=== PATIENT | female | born 1975 | race Caucasian/White ===

== ENCOUNTER 2017-01-08 19:39 | Emergency (ER) | payer BC ==
[2017-01-08] MEDS ORDERED: NORMAL SALINE 10 ML SYRINGE FLUSH IVP PRN (19:57)
[2017-01-08] MEDS ORDERED: ONDANSETRON 4 MG/2 ML VIAL IVP ONE (19:57)
[2017-01-08 20:03] VITALS: RESP 18; TEMP 97.5
[2017-01-08] MEDS ORDERED: Belladon/PHENobarbital Elixir 10 ML, Lidocaine Viscous Liquid 2% 15 ML, Mag Hyd/Al Hyd/... PO ONE ×3 (20:18)
[2017-01-08 20:19] LABS: BASOPHILS # (AUTO) 0.02 10*3/UL; BASOPHILS % (AUTO) 0.3 % (0-1); EOSINOPHILS # (AUTO) 0.04 10*3/UL; EOSINOPHILS % (AUTO) 0.5 % (0-8); HEMATOCRIT 39.3 % (37.0-47.0); HEMOGLOBIN 13.3 g/dL (12.0-16.0); LYMPHOCYTES # (AUTO) 1.91 10*3/uL; MEAN CORPUSCULAR HEMOGLOBIN 28.7 PG (27-31); MEAN CORPUSCULAR HGB CONC 33.8 g/dL (33-37); MEAN CORPUSCULAR VOLUME 84.9 FL (81-99); MEAN PLATELET VOLUME 8.4 FL (7.4-12.2); MONOCYTES # (AUTO) 0.54 10*3/UL (0.3-0.8); MONOCYTES % (AUTO) 7.2 % (5-15); NEUTROPHILS # (AUTO) 4.95 10*3/UL; NEUTROPHILS % (AUTO) 66.3 % (50-80); RED BLOOD COUNT 4.63 10^6/uL (4.20-5.40)
[2017-01-08 20:22] LABS: PLATELET MORPHOLOGY COMMENT NORMAL MORPHOLOGY (NORM); RBC MORPHOLOGY COMMENT NORMAL MORPHOLOGY (NORM); WBC MORPHOLOGY COMMENT NORMAL MORPHOLOGY (NORM)
[2017-01-08 20:30] LABS: BLOOD UREA NITROGEN 9 mg/dL (7-22); BUN/CREATININE RATIO 12.85 (6-20); C-REACTIVE PROTEIN 1.6 mg/dL (0.0-0.9); CALCIUM 8.8 mg/dL (8.7-10.7); EST GLOMERULAR FILTRATION > 60 (>60 ml/min/1.73m(2)); LIPASE 111 IU/L (23-300)
[2017-01-08] MEDS ORDERED: Pantoprazole Inj 40 MG in Normal Saline Flush 10 ML IVP ONE (20:51)
--- NOTE | 2017-01-08 21:35 | PDOC ---
Abdomen/Flank HPI - General Chief Complaint: Abdomen Pain Stated Complaint: Epigastric pain Date Seen by Provider: 01/08/17 Time Seen by Provider: 19:45 Source: POSITIVE: Patient Exam Limitations: POSITIVE: No limitations Nurse's Notes Reviewed & Considered: Yes - History of Present Illness Initial Comments: The patient is a 41-year-old female who presents to the emergency department with epigastric abdominal pain. She reports that intermittently for the past 3 or 4 months she has had pain in the epigastric region that occasionally radiates through to the back. This pain seems to occur at random intervals and is not necessarily related to eating certain foods or eating in general. Her pain does not seem to be related with activity either. She denies any radiation of pain into her chest, shortness of breath, pain or swelling in her extremities, fevers or chills, change in bowel movements, vomiting or any other associated symptoms. She denies any previous abdominal surgery. She has not had any known ulcer or gastritis. She does admit to drinking coffee as well as tea fairly frequently. Her pain at home was quite intense in seems to have eased up by the time she arrives here in the emergency room. - Patient Home Medications Home Medications: Home Medications Norethindrone-E.estradiol-Iron [Loestrin Fe 1-20 Tablet] 1 tab PO DAILY #28 packet 12/21/16 Pantoprazole Sodium [Protonix] 40 mg PO DAILY #30 tablet. 01/08/17 - Patient Allergies Allergies/Adverse Reactions: Allergies Allergy/AdvReac Type Severity Reaction Status Date / Time amoxicillin Allergy RASH Verified 01/08/17 19:49 Penicillins Allergy rash Verified 01/08/17 19:49 Past Medical History - heen HEENT History: Denies History Cardiovascular History: Other (please comment) Additional Cardiovasular History: Pt reports cardiac cath surgery as young child , with negative results because of chest pain as a child. Pt reports chest pain resolved and hasn't had pain since. Respiratory History: Denies History Gastrointestinal History: Denies History Genitourinary History: Kidney Stones Endocrine History: Denies History Musculoskeletal History: Denies History Prosthesis or Implant: No Neurological History: Denies History Blood Disorders: Denies History Psychiatric History: Denies History Female Reproductive History: Denies History Obstetrical History: Denies History Cancer History: Denies History In Past Year Been Physically Harmed or Verbally Threatened: No History of MDRO: No Tobacco Use: Never Smoker Alcohol Use: None Substance Use Type: None Previous Surgical History: Yes Type / Date of Surgery: cardiac cath at age 4, negative results Significant Family History: No pertinent family hx Past Medical History Reviewed: Reviewed - No Changes ROS - Limitations ROS Limitations: No Limitations Constitution: REPORTS: Chills, Fever Cardiovascular: REPORTS: Denies Cardiac Symptoms Respiratory: REPORTS: Denies Resp Symptoms Neurological: REPORTS: Denies Neuro Symptoms Gastrointestinal: REPORTS: Abdominal Pain, Nausea. DENIES: Vomitting, Diarrhea , Black Stools, Bloody Stools, Constipation Musculoskeletal: REPORTS: Denies MS Symptoms Eyes: REPORTS: Denies Symptoms ENT: REPORTS: Denies Symptoms Skin: DENIES: Rash Abdominal/Flank Pain PE - General Appearance General Appearance: POSITIVE: Alert, Cooperative, No Acute Distress - HEENT HEENT: POSITIVE: Head Inspection Nml - Neck Neck: POSITIVE: Normal Inspection. NEGATIVE: Lymphadenopathy - Respiratory Respiratory: POSITIVE: No Respiratory Distress, Breath Sounds Normal - Cardiovascular Cardiovascular: POSITIVE: Regular Rate and Rhythm, Heart Sounds Normal Peripheral Pulses: Dorsalis-pedis (R): 2+, Dorsalis-pedis (L): 2+ - Abdomen Abdomen: Soft: (All Quadrants), Normal Bowel Sounds: (All Quadrants), No Guarding: (All Quadrants), No Rebound: (All Quadrants), No Distention: (All Quadrants) Additional Abdominal Details: She does have some tenderness in the epigastric as well as right upper quadrant , negative Cloud sign, no guarding or rebound tenderness, no palpable mass. - Skin Skin: POSITIVE: Intact, No Rash - Extremities Extremity: Normal ROM: (All Extremities), Normal Inspection: (All Extremities) - Neurological Neurological: POSITIVE: Oriented X3, Motor Normal, Sensation Normal Abdomen Progress - Results Reviewed by me Lab Results Reviewed: Yes Lab Results:: Laboratory Results 01/08/17 Range/Units 20:10 WBC 7.47 (4.8-10.8) 10^3/uL RBC 4.63 (4.20-5.40) 10^6/uL Hgb 13.3 (12.0-16.0) g/dL Hct 39.3 (37.0-47.0) % MCV 84.9 (81-99) FL MCH 28.7 (27-31) PG MCHC 33.8 (33-37) g/dL RDW Std Deviation 39.0 (39-50) fL RDW Coeff of Jeremy 12.9 (11.5-14.5) % Plt Count 300 (140-350) 10*3/uL MPV 8.4 (7.4-12.2) FL Immature Gran % (Auto) 0.1 (0-5) % Neut % (Auto) 66.3 (50-80) % Lymph % (Auto) 25.6 (10-50) % Collin % (Auto) 7.2 (5-15) % Eos % (Auto) 0.5 (0-8) % Baso % (Auto) 0.3 (0-1) % Immature Gran # (Auto) 0.01 10*3/UL Neut # (Auto) 4.95 10*3/UL Lymph # (Auto) 1.91 10*3/uL Collin # (Auto) 0.54 (0.3-0.8) 10*3/UL Eos # (Auto) 0.04 10*3/UL Baso # (Auto) 0.02 10*3/UL WBC Morphology Comment Normal morphology (NORM) Plt Morphology Comment Normal morphology (NORM) RBC Morph Comment Normal morphology (NORM) Sodium 138 (135-145) meq/L Potassium 3.7 L (3.8-5.2) meq/L Chloride 107 (98-112) meq/L Carbon Dioxide 21 L (23-33) meq/L Anion Gap 10 (5-20) BUN 9 (7-22) mg/dL Creatinine 0.7 (0.50-1.20) mg/dL Estimated GFR > 60 (>60 ml/min/1.73m(2)) BUN/Creatinine Ratio 12.85 (6-20) Glucose 93 (78-110) mg/dL Calculated Osmolality 284.0 (267-292) mOsm/kg Calcium 8.8 (8.7-10.7) mg/dL Total Bilirubin 1.0 (0.3-1.2) mg/dL AST 52 H (8-39) IU/L ALT 45 (9-52) IU/L Alkaline Phosphatase 89 (38-126) IU/L Troponin I < 0.012 (< 0.040) ng/mL C-Reactive Protein 1.6 H (0.0-0.9) mg/dL Total Protein 7.4 (6.1-8.0) g/dL Albumin 4.0 (3.5-4.8) g/dL Globulin 3.4 (2.50-4.10) g/dL Albumin/Globulin Ratio 1.10 L (1.3-2.0) mg/g Amylase 70 (30-110) U/L Lipase 111 (23-300) IU/L Serum HCG, Qual Negative EKG Interpreted/Reviewed By Me:: Yes EKG Interpretation:: POSITIVE: Normal Sinus Rhythm, Normal Rate, Normal Intervals, Normal QRS, Normal ST/T - Patient's Progress MDM / ED Course: Her initial EKG was normal. Blood work is all essentially unremarkable except for slightly elevated AST. At this point her symptoms seem most consistent with gastritis or ulcer. Her pain resolved completely even before administration of GI cocktail. For now she was started on Protonix 40 mg daily and advised to limit caffeine intake. She will return to the emergency room if increased pain, fever, worsening or change in symptoms. If symptoms persist she will likely require further evaluation with ultrasound and/or CT and/or endoscopy. She is advised follow-up with primary care and has an appointment in 2 weeks, she will follow-up sooner if she has any persistent symptoms. - Consult Counseled: POSITIVE: Patient, Family, RE: Lab Results, RE: DX, RE: Need for F/U Patient Care Time - Estimated PCT Patient Care Time (In Minutes): 25 Vital Signs - Recent Vital Signs Vital Signs: Vital Signs (Last 8 hours) Temp Pulse Resp BP Pulse Ox 01/08/17 19:40 97.5 F 70 18 132/85 99 - VS Reviewed Vital Signs Reviewed: Yes Discharge Clinical Impression: Epigastric pain Discharge Disposition: Discharged to Home Condition: Stable Prescriptions / Orders: Pantoprazole Sodium [Protonix] 40 mg PO DAILY #30 tablet. Patient Instructions Given at Discharge: Epigastric Pain (ED) Additional Instructions: The pain in the upper abdomen is most likely related to gastritis or ulcer. Start protonix 40mg daily (antiacid). Limit caffeine. Return to the ER if increased pain, fever or worsening. Keep follow-up with PCP in 2 weeks. If symptoms persist or worsen follow-up sooner. Follow Up With: SARAI HERBERT [Primary Care Provider] -
--- NOTE | 2017-01-09 18:36 | EKG ---
[address] [address] Measurements Intervals [place] Rate: 68 P: 61 TX: 136 QRS: 29 QRSD: 106 T: 23 QT: 407 QTc: 424 Interpretive Statements SINUS RHYTHM WITH SINUS ARRHYTHMIA No previous ECG available for comparison Electronically Signed On 01-10-17 08:58:55 MDT by Cj Saleh [id number]
== END 2017-01-08 21:26 | disposition home or self-care (01) ==
LOC: ER 19:39
DX: R10.13 Epigastric pain (principal); R11.0 Nausea
CPT/HCPCS: 80053; 82150; 83690; 84484; 84703; 85025; 86140; 93005; 93010; 96374; 96375; 99283; J2405; J3490